=== PATIENT | female | born 2000 | race Asian ===

== ENCOUNTER 2024-01-19 12:39 | Emergency (ER) | payer BC ==
[~2024-01-19] VITALS: Ht 154.9 cm; Wt 95.0 kg
[2024-01-19 13:01] VITALS: BP 195/100; PULSE 95; TEMP 98.5; O2SAT 98
[2024-01-19 15:04] VITALS: RESP 16
== END 2024-01-19 15:05 | disposition home or self-care (01) ==
LOC: ER 12:40
DX: J32.8 Other chronic sinusitis (principal)
CPT/HCPCS: 99281